=== PATIENT | female | born 1980 | race Caucasian/White ===

== ENCOUNTER 2018-11-22 07:26 | Day surgery (SDC) | payer OTHER ==
[~2018-11-22 07:26] MED LIST: CEFAZOLIN 1 GM INJ
[2018-11-22] MEDS ORDERED: CEFAZOLIN 2 GM/50 ML (PMX) 50 ML IVPB (08:00)
[2018-11-22] MEDS ORDERED: METOCLOPRAMIDE 10 MG INJ IV (09:00)
[2018-11-22] MEDS ORDERED: MEPERIDINE 25 MG INJ IV (09:00)
[2018-11-22] MEDS ORDERED: ALBUTEROL 0.083% (NEB) 2.5 MG/3 ML AMP HHN (09:00)
[2018-11-22] MEDS ORDERED: DIPHENHYDRAMINE 50 MG INJ IV (09:00)
[2018-11-22] MEDS ORDERED: HYDROmorphONE 1 MG/5 ML IV SYRINGE IV ×3 (09:00)
[2018-11-22] MEDS ORDERED: ONDANSETRON 4 MG INJ IV (09:00)
[2018-11-22] MEDS ORDERED: FENTAnyl 50 MCG/ML VIAL IV ×2 (09:00)
[2018-11-22] MEDS ORDERED: BUPIVACAINE 0.75%/DEXT (SPINAL) 2 ML INJ (09:51)
[2018-11-22] MEDS ORDERED: MIDAZOLAM 1 MG/ML 2 ML INJ (09:51)
[2018-11-22] MEDS ORDERED: PHENYLephrine (100 MCG/ML) 10ML SYG (09:52)
[2018-11-22] MEDS ORDERED: ONDANSETRON 4 MG INJ ×2 (09:55→10:01)
[2018-11-22] MEDS: KETOROLAC 30 MG INJ IV (12:50)
[2018-11-22] MEDS: ONDANSETRON 4 MG INJ IV (13:43)
== END 2018-11-22 16:40 | disposition home or self-care (01) ==
LOC: SDS 07:26
DX: N92.1 Excessive and frequent menstruation with irregular cycle (principal); T83.83XA Hemorrhage due to genitourinary prosthetic devices, implants and grafts, initial encounter; Y84.8 Other medical procedures as the cause of abnormal reaction of the patient, or of later complication, without mention of misadventure at the time of the procedure; Y76.1 Therapeutic (nonsurgical) and rehabilitative obstetric and gynecological devices associated with adverse incidents; E66.01 Morbid (severe) obesity due to excess calories; Z68.42 Body mass index [BMI] 45.0-49.9, adult; E78.5 Hyperlipidemia, unspecified; E11.9 Type 2 diabetes mellitus without complications
CPT/HCPCS: 58563; 84703; 88300; 88305; 93005

== ENCOUNTER 2018-11-26 19:44 | Inpatient (IN) | payer OTHER ==
[2018-11-26] MEDS ORDERED: DOCUSATE SODIUM 100 MG CAP PO (21:00)
[2018-11-26] MEDS ORDERED: NACL 0.9% 3 ML SYG IV (21:00)
[2018-11-26 21:05] LABS: ADD MAN DIFF? NO
[2018-11-26 21:06] LABS: WHITE BLOOD COUNT 10.3 10^3/ul (4.8-10.8)
[2018-11-26 21:06] LABS: BASOPHIL # 0.1 10^3/ul (0.0-0.1); BASOPHILS % 0.6 % (0.0-2.0); EOSINOPHILS # 0.2 10^3/ul (0.0-0.5); EOSINOPHILS % 2.1 % (0.0-7.0); HEMATOCRIT 35.4 % (37.0-47.0); HEMOGLOBIN 11.3 g/dl (12.0-16.0); LYMPHOCYTES % 39.1 % (15.0-51.0); MEAN CORPUSCULAR HEMOGLOBIN 29.3 pg (29.0-33.0); MEAN CORPUSCULAR HGB CONC 31.9 g/dl (32.0-37.0); MEAN CORPUSCULAR VOLUME 91.7 fl (82.0-101.0); MEAN PLATELET VOLUME 10.7 fl (7.4-10.4); MONOCYTE # 0.8 10^3/ul (0.3-0.9); MONOCYTES % 7.4 % (0.0-11.0); NEUTROPHIL # 5.2 10^3/ul (1.6-7.5); NEUTROPHILS % 50.5 % (39.0-77.0); PLATELET COUNT 274 10^3/UL (140-415); RED BLOOD COUNT 3.86 10^6/ul (4.20-5.40); RED CELL DISTRIBUTION WIDTH 13.3 % (11.5-14.5)
[2018-11-26 21:28] LABS: ALANINE AMINOTRANSFERASE 69 IU/L (13-69); ALBUMIN 3.6 g/dl (3.3-4.9); ALBUMIN/GLOBULIN RATIO 0.97; ALKALINE PHOSPHATASE 83 IU/L (42-121); ANION GAP 9 (5-13); ASPARTATE AMINO TRANSFERASE 45 IU/L (15-46); BILIRUBIN,INDIRECT 0.3 mg/dl (0-1.1); BILIRUBIN,TOTAL 0.3 mg/dl (0.2-1.3); BLOOD UREA NITROGEN 9 mg/dl (7-20); CALCIUM 8.7 mg/dl (8.4-10.2); CARBON DIOXIDE 25 mmol/L (21-31); CHLORIDE 107 mmol/L (97-110); CREATININE 0.66 mg/dl (0.44-1.00); Estimated GFR > 60 mL/min (>60); GLUCOSE 97 mg/dl (70-220); MAGNESIUM 1.7 mg/dl (1.7-2.5); POTASSIUM 3.2 mmol/L (3.5-5.1); SODIUM 141 mmol/L (135-144); TOTAL PROTEIN 7.3 g/dl (6.1-8.1)
[2018-11-26] MEDS: ONDANSETRON 4 MG INJ IV (23:38)
[2018-11-26] MEDS: ACET/BUTAL/CAFF TAB PO (23:38)
[2018-11-26] MEDS: morphine 2 MG INJ IV (23:49)
[2018-11-27] MEDS: PANTOPRAZOLE 40 MG INJ IV ×2 (00:14→06:00)
[2018-11-27] MEDS: ACET/BUTAL/CAFF TAB PO ×3 (03:32→21:03)
[2018-11-27] MEDS: POTASSIUM CHLORIDE (SR) 20 MEQ TAB PO (03:33)
[2018-11-27] MEDS: morphine 2 MG INJ IV ×3 (04:26→22:16)
[2018-11-27] MEDS: METOCLOPRAMIDE 10 MG INJ IV ×2 (04:26→21:20)
[2018-11-27 05:04] LABS: ADD MAN DIFF? NO
[2018-11-27 05:10] LABS: WHITE BLOOD COUNT 10.4 10^3/ul (4.8-10.8)
[2018-11-27 05:10] LABS: BASOPHIL # 0.1 10^3/ul (0.0-0.1); BASOPHILS % 0.8 % (0.0-2.0); EOSINOPHILS # 0.3 10^3/ul (0.0-0.5); EOSINOPHILS % 2.6 % (0.0-7.0); HEMATOCRIT 36.2 % (37.0-47.0); HEMOGLOBIN 11.5 g/dl (12.0-16.0); LYMPHOCYTES # 3.7 10^3/ul (0.8-2.9); LYMPHOCYTES % 35.7 % (15.0-51.0); MEAN CORPUSCULAR HEMOGLOBIN 29.3 pg (29.0-33.0); MEAN CORPUSCULAR HGB CONC 31.8 g/dl (32.0-37.0); MEAN CORPUSCULAR VOLUME 92.3 fl (82.0-101.0); MEAN PLATELET VOLUME 11.2 fl (7.4-10.4); MONOCYTE # 0.6 10^3/ul (0.3-0.9); NEUTROPHIL # 5.7 10^3/ul (1.6-7.5); NEUTROPHILS % 54.5 % (39.0-77.0); PLATELET COUNT 294 10^3/UL (140-415); RED BLOOD COUNT 3.92 10^6/ul (4.20-5.40); RED CELL DISTRIBUTION WIDTH 13.3 % (11.5-14.5)
[2018-11-27 05:52] LABS: ALANINE AMINOTRANSFERASE 67 IU/L (13-69); ALBUMIN 3.7 g/dl (3.3-4.9); ALBUMIN/GLOBULIN RATIO 1.05; ALKALINE PHOSPHATASE 82 IU/L (42-121); ANION GAP 9 (5-13); ASPARTATE AMINO TRANSFERASE 44 IU/L (15-46); BILIRUBIN,INDIRECT 0.5 mg/dl (0-1.1); BILIRUBIN,TOTAL 0.5 mg/dl (0.2-1.3); BLOOD UREA NITROGEN 9 mg/dl (7-20); CALCIUM 8.7 mg/dl (8.4-10.2); CARBON DIOXIDE 25 mmol/L (21-31); CHLORIDE 108 mmol/L (97-110); CREATININE 0.71 mg/dl (0.44-1.00); Estimated GFR > 60 mL/min (>60); GLUCOSE 114 mg/dl (70-220); MAGNESIUM 1.6 mg/dl (1.7-2.5); POTASSIUM 3.2 mmol/L (3.5-5.1); SODIUM 142 mmol/L (135-144); TOTAL PROTEIN 7.2 g/dl (6.1-8.1)
[2018-11-27] MEDS: PANTOPRAZOLE (EC) 40 MG TAB PO ×2 (06:00→08:49)
[2018-11-27] MEDS: BRIMONIDINE 0.15% 5 ML OPH RIGHT EYE ×2 (08:42→22:16)
[2018-11-27] MEDS: PREDNISOLONE ACET 1% 5 ML OPH BOTH EYES ×2 (08:42→21:24)
[2018-11-27] MEDS: DORZOLAMIDE/TIMOLOL 10 ML OPH RIGHT EYE ×2 (08:42→22:12)
[2018-11-27] MEDS ORDERED: POTASSIUM CHLORIDE 100 ML IVPB (10:00)
[2018-11-27] MEDS: BACLOFEN 10 MG TAB PO (11:49)
[2018-11-27] MEDS: MAGNESIUM SULFATE 2 GM/50 ML 50 ML IVPB (11:51)
[2018-11-27] MEDS: ONDANSETRON 4 MG INJ IV (16:52)
[2018-11-27] MEDS: RHOPRESSA 0.02% BOTH EYES (21:12)
[2018-11-28] MEDS: METOCLOPRAMIDE 10 MG INJ IV ×3 (03:52→21:13)
[2018-11-28] MEDS: morphine 2 MG INJ IV ×5 (03:55→21:13)
[2018-11-28] MEDS: PANTOPRAZOLE 40 MG INJ IV (05:18)
[2018-11-28] MEDS: ACET/BUTAL/CAFF TAB PO ×3 (05:18→21:13)
[2018-11-28] MEDS: ONDANSETRON 4 MG INJ IV ×2 (08:16→16:08)
[2018-11-28] MEDS: BRIMONIDINE 0.15% 5 ML OPH RIGHT EYE ×2 (08:20→21:12)
[2018-11-28] MEDS: PREDNISOLONE ACET 1% 5 ML OPH BOTH EYES ×2 (08:20→21:11)
[2018-11-28] MEDS: DORZOLAMIDE/TIMOLOL 10 ML OPH RIGHT EYE ×2 (08:20→21:12)
[2018-11-28 11:29] LABS: ADD MAN DIFF? NO; BASOPHIL # 0.1 10^3/ul (0.0-0.1); BASOPHILS % 0.6 % (0.0-2.0); EOSINOPHILS # 0.3 10^3/ul (0.0-0.5); EOSINOPHILS % 2.8 % (0.0-7.0); HEMATOCRIT 38.2 % (37.0-47.0); HEMOGLOBIN 12.1 g/dl (12.0-16.0); LYMPHOCYTES # 3.2 10^3/ul (0.8-2.9); MEAN CORPUSCULAR HEMOGLOBIN 29.1 pg (29.0-33.0); MEAN CORPUSCULAR HGB CONC 31.7 g/dl (32.0-37.0); MEAN CORPUSCULAR VOLUME 91.8 fl (82.0-101.0); MEAN PLATELET VOLUME 11.5 fl (7.4-10.4); MONOCYTE # 0.5 10^3/ul (0.3-0.9); MONOCYTES % 5.7 % (0.0-11.0); NEUTROPHIL # 4.8 10^3/ul (1.6-7.5); NEUTROPHILS % 54.7 % (39.0-77.0); PLATELET COUNT 303 10^3/UL (140-415); RED BLOOD COUNT 4.16 10^6/ul (4.20-5.40); RED CELL DISTRIBUTION WIDTH 13.2 % (11.5-14.5)
[2018-11-28 11:29] LABS: WHITE BLOOD COUNT 8.8 10^3/ul (4.8-10.8)
[2018-11-28 11:56] LABS: ANION GAP 7 (5-13); BLOOD UREA NITROGEN 9 mg/dl (7-20); CALCIUM 9.1 mg/dl (8.4-10.2); CARBON DIOXIDE 29 mmol/L (21-31); CHLORIDE 102 mmol/L (97-110); Estimated GFR > 60 mL/min (>60); GLUCOSE 115 mg/dl (70-220); MAGNESIUM 1.9 mg/dl (1.7-2.5); PHOSPHORUS 3.3 mg/dl (2.5-4.9); POTASSIUM 3.8 mmol/L (3.5-5.1); SODIUM 138 mmol/L (135-144)
[2018-11-28] MEDS: BISACODYL (EC) 5 MG TAB PO (15:44)
[2018-11-28] MEDS: RHOPRESSA 0.02% BOTH EYES (21:11)
[2018-11-29] MEDS: PANTOPRAZOLE (EC) 40 MG TAB PO ×2 (05:54→08:24)
[2018-11-29] MEDS: PREDNISOLONE ACET 1% 5 ML OPH BOTH EYES ×2 (08:20→21:45)
[2018-11-29] MEDS: DORZOLAMIDE/TIMOLOL 10 ML OPH RIGHT EYE ×2 (08:20→21:45)
[2018-11-29] MEDS: BRIMONIDINE 0.15% 5 ML OPH RIGHT EYE ×2 (08:20→21:46)
[2018-11-29] MEDS: morphine 2 MG INJ IV ×2 (15:43→19:52)
[2018-11-29] MEDS: METOCLOPRAMIDE 10 MG INJ IV ×2 (15:44→19:55)
[2018-11-29] MEDS: LACTATED RINGER'S 1,000 ML IV (15:46)
[2018-11-29] MEDS: BACLOFEN 10 MG TAB PO (18:57)
[2018-11-29] MEDS: ACET/BUTAL/CAFF TAB PO (20:55)
[2018-11-29] MEDS: RHOPRESSA 0.02% BOTH EYES (21:45)
[2018-11-29] MEDS: DIAZEPAM 5 MG/ML SYG IV (22:14)
[2018-11-30] MEDS: morphine 2 MG INJ IV ×2 (00:54→07:57)
[2018-11-30] MEDS: METOCLOPRAMIDE 10 MG INJ IV ×2 (00:54→07:57)
[2018-11-30] MEDS: PANTOPRAZOLE (EC) 40 MG TAB PO (05:36)
[2018-11-30] MEDS: BACLOFEN 10 MG TAB PO (07:57)
[2018-11-30] MEDS: DORZOLAMIDE/TIMOLOL 10 ML OPH RIGHT EYE (09:27)
[2018-11-30] MEDS: PREDNISOLONE ACET 1% 5 ML OPH BOTH EYES (09:27)
[2018-11-30] MEDS: BRIMONIDINE 0.15% 5 ML OPH RIGHT EYE (09:27)
[2018-11-30] MEDS: ACETAMINOPHEN 325 MG TAB PO (11:21)
== END 2018-11-30 14:12 | disposition home or self-care (01) | DRG 103 ==
LOC: MS1 19:44
PROC: 3E0R3GC Introduction of Other Therapeutic Substance into Spinal Canal, Percutaneous Approach (ICD-10-PCS; principal; 2018-11-29)
DX: G44.40 Drug-induced headache, not elsewhere classified, not intractable (principal); Z68.42 Body mass index [BMI] 45.0-49.9, adult; M54.5 Low back pain; E66.01 Morbid (severe) obesity due to excess calories; T41.3X5A Adverse effect of local anesthetics, initial encounter; M06.9 Rheumatoid arthritis, unspecified; M79.7 Fibromyalgia; G43.909 Migraine, unspecified, not intractable, without status migrainosus; H40.9 Unspecified glaucoma; N93.8 Other specified abnormal uterine and vaginal bleeding; Y92.019 Unspecified place in single-family (private) house as the place of occurrence of the external cause
CPT/HCPCS: 80048; 80053; 83735; 84100; 84443; 85025; 99217